=== PATIENT | male | born 1965 | race Caucasian/White ===

== ENCOUNTER 2017-02-19 16:44 | Emergency (ER) | payer OTHER ==
--- NOTE | 2017-02-19 17:43 | ED NURSING NOTES ---
Clinical Report - Nurses [facility] [address] [place] [address] 02/19/2017 16:45 [id number] Triage time 16:52 Feb 19 2017. Acuity: LEVEL 4. Chief Complaint: RIGHT LOWER EXTREMITY PAIN, SWELLING and REDNESS. 16:59 02/19/17. Alert. No acute distress. SEPSIS SCREEN: Sepsis Screen. Negative (no infection suspected/documented). PRATIBHA COMA SCORE: Pratibha Coma Scale: 15- eyes open spontaneously (4); best verbal response- oriented x 4 (5); best motor response- obeys commands (6). --16:59 María Gayle 16:59 02/19/17. BP: 174/103. HR: 71. RR: 14. O2 saturation: 100%. Temp: 97.6 F. Pain level now 1010. --16:59 María Gayle. Weight: 102 kg stated. Height/Length: 72 inches Per Patient. BMI: 30.5. --16:59 María Gayle. Medications Lisinopril Oral 5 mg. --16:56 María Gayle FLUoxetine HCl Oral 20 mg. --16:56 María Gayle Omeprazole Oral 20 mg. --16:56 María Gayle. Medication/allergy information source: the patient. --16:59 María Gayle. Allergies Penicillin. --16:57 María Gayle. History Arrived by private vehicle. Historian: patient. Unaccompanied. Primary physician (Oracio). This occurred (About a week ago). It is described as radiating to the right lower extremity, knee, calf and foot. ( Pt reports gardening that led to swelling in the knee and then down his right leg. Denies fevers/chills. Has never occurred before.). He has had swelling and trouble walking. No fever. 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 PAST MEDICAL HX: Hypertension. No history of deep vein thrombosis or infections. Tetanus status: unknown. Immunizations: up-to-date. SOCIAL HX: Smoker- current status unknown (chews tobacco). No alcohol use or drug use. FALL RISK ASSESSMENT: Fall risk assessment completed. No fall risk identified. NUTRITIONAL RISK ASSESSMENT: The nutritional risk assessment revealed no deficiencies. FUNCTIONAL ASSESSMENT: Functional assessment: no impairments noted. LEARNING NEEDS ASSESSMENT: The learning needs assessment revealed no barriers. SKIN INTEGRITY ASSESSMENT: Skin integrity risk assessment completed. No skin integrity risk identified. --16:59 María Gayle. Assessment The patient states feels the same. --16:59 María Gayle. Interventions ID band on patient. --16:59 María Gayle. PHYSICAL ASSESSMENT 17:00 02/19/17. Ambulatory to room. Patient gowned. GENERAL / NEURO / PSYCH: Oriented X 4. Alert. Appears in no acute distress. CVS: Pulses: right dorsalis pedis 3+ and left dorsalis pedis 3+. EXTREMITIES: Limited ROM present. Increased warmth on the extremities. Extremity pulses are within normal limits. Neuro-vascular status intact to the extremity. Right leg: swelling and erythema. Right ankle: swelling and erythema. Right foot: swelling and erythema. ( limping gait). SKIN: Skin is warm and dry. --17:00 María Gayle. NURSING PROGRESS NOTES 17:02/19/17. The plan of care for this patient has been created. Cold pack applied. Neuro-vascular extremity check. Patient gowned. Reassurance given. Two patient identifiers checked. Call light placed in reach. Side rails up x 1. Bed placed in lowest position. Brakes of bed on. Patient ready for evaluation- chart flagged and ED physician and PA notified. --17:01 María Gayle 17:13 02/19/2017 TDAP IM 0.5 mL given. (Lot#: [id number], expiration date: 01/20/2019, Consultant In Ergonomics And Safety: sanofi pasteur). Given in the right deltoid. Allergies verified and confirmed 5 rights. --17:13 María Gayle 17:52 02/19/2017 Bactrim DS (Sulfamethoxazole-TMP DS) PO Tablets 1 tab given. Allergies verified and confirmed 5 rights. --17:52 María Gayle. DISPOSITION / DISCHARGE 17:53 02/19/17. Departure time: 17:53 Feb 19 2017. Condition at departure: improved. The goals identified in the patient's plan of care were met. No learning barriers present. Discharge instructions provided and reviewed with the patient. Reviewed warnings (Patient verbalized understanding of sedation warning. Patient verbalized awareness of warning s/sx listed in dc paperwork.). Reviewed medication(s) side effects, precautions, dosing and course information. Prescription(s) given to the patient (Bactrim, Vicoden). Treatments reviewed. Reviewed referral to a primary care physician for followup. Patient verbalized understanding. Written instructions provided in Japanese. The patient was discharged by the physician medical assistant instructor. He was discharged home and unaccompanied at time of discharge. He left the Emergency Department ambulatory and via private vehicle. Patient driving. FALL RISK ASSESSMENT: Fall risk assessment completed. No fall risk identified. --17:53 María Gayle 17:52 02/19/17. BP: 157/98. HR: 67. RR: 17. O2 saturation: 99% on room air. Temp: 98.4 F. Pain level now: 05/26. --17:53 María Gayle. Locked/Released at 02/19/2017 19:32 by María Gayle,
--- NOTE | 2017-02-19 17:43 | ED ORDER SUMMARY ---
..... Patient: ANNABEL GARCIA OrderSheet [facility] VisitID: [id number] [address] [place] [address] 51y, M Registration Date/Time: 02/19/2017 ORDER SHEET Weight: 102.0 kg (stated) Allergies: Penicillin GENERAL ORDERS: US Venous Right Urgent (16:57 02/19/2017 EKoroleva P.A.-C) (Ack 16:59 KHoerner) (17:43 Bernadette Khan.NLorenza) CBC w Diff Urgent (16:57 02/19/2017 EKoroleva P.A.-C) (Ack 16:59 KHoerner) (17:07 ASchmuck) BMP Urgent (16:57 02/19/2017 EKoroleva P.A.-C) (Ack 16:59 KHoerner) (17:07 ASchmuck) PCT (Procalcitonin) Urgent (16:57 02/19/2017 EKoroleva P.A.-C) (Ack 16:59 KHoerner) (17:08 ASchmuck) MEDICATION ORDERS: Tdap IM 0.5 mL (NOW, per protocol) (17:04 02/19/2017 EKoroleva P.A.-C) (Ack 17:08 ASchmuck) (17:13 ASchmuck) Bactrim DS PO (Tablet 800-160 mg) 1 tab (NOW) (17:41 02/19/2017 EKoroleva P.A.-C) (Ack 17:43 ASchmuck) (17:52 ASchmuck) IV FLUIDS: ORDER SHEET NOTES: [Electronically signed by Adrianne LaurentALorenza-Maurice (17:54 02/19/2017)] [Electronically signed by María Gayle (19:32 02/19/2017)] [Electronically locked/signed by María Gayle (19:32 02/19/2017)]
--- NOTE | 2017-02-19 17:43 | ED ORDER SUMMARY ---
..... Patient: ANNABEL GARCIA OrderSheet [facility] VisitID: [id number] [address] [place] [address] 51y, M Registration Date/Time: 02/19/2017 ORDER SHEET Weight: 102.0 kg (stated) Allergies: Penicillin GENERAL ORDERS: US Venous Right Urgent (16:57 02/19/2017 EKoroleva P.A.-C) (Ack 16:59 KHoerner) (17:43 Bernadette Khan.NLorenza) CBC w Diff Urgent (16:57 02/19/2017 EKoroleva P.A.-C) (Ack 16:59 KHoerner) (17:07 ASchmuck) BMP Urgent (16:57 02/19/2017 EKoroleva P.A.-C) (Ack 16:59 KHoerner) (17:07 ASchmuck) PCT (Procalcitonin) Urgent (16:57 02/19/2017 EKoroleva P.A.-C) (Ack 16:59 KHoerner) (17:08 ASchmuck) MEDICATION ORDERS: Tdap IM 0.5 mL (NOW, per protocol) (17:04 02/19/2017 EKoroleva P.A.-C) (Ack 17:08 ASchmuck) (17:13 ASchmuck) Bactrim DS PO (Tablet 800-160 mg) 1 tab (NOW) (17:41 02/19/2017 EKoroleva P.A.-C) (Ack 17:43 ASchmuck) (17:52 ASchmuck) IV FLUIDS: ORDER SHEET NOTES: [Electronically signed by Adrianne LaurentALorenza-Maurice (17:54 02/19/2017)] [Electronically signed by María Gayle (19:32 02/19/2017)] [Electronically locked/signed by María Gayle (19:32 02/19/2017)]
--- NOTE | 2017-02-19 17:43 | ED NURSING NOTES ---
Clinical Report - Nurses [facility] [address] [place] [address] 02/19/2017 16:45 [id number] Triage time 16:52 Feb 19 2017. Acuity: LEVEL 4. Chief Complaint: RIGHT LOWER EXTREMITY PAIN, SWELLING and REDNESS. 16:59 02/19/17. Alert. No acute distress. SEPSIS SCREEN: Sepsis Screen. Negative (no infection suspected/documented). PRATIBHA COMA SCORE: Pratibha Coma Scale: 15- eyes open spontaneously (4); best verbal response- oriented x 4 (5); best motor response- obeys commands (6). --16:59 María Gayle 16:59 02/19/17. BP: 174/103. HR: 71. RR: 14. O2 saturation: 100%. Temp: 97.6 F. Pain level now 1010. --16:59 María Gayle. Weight: 102 kg stated. Height/Length: 72 inches Per Patient. BMI: 30.5. --16:59 María Gayle. Medications Lisinopril Oral 5 mg. --16:56 María Gayle FLUoxetine HCl Oral 20 mg. --16:56 María Gayle Omeprazole Oral 20 mg. --16:56 María Gayle. Medication/allergy information source: the patient. --16:59 María Gayle. Allergies Penicillin. --16:57 María Gayle. History Arrived by private vehicle. Historian: patient. Unaccompanied. Primary physician (Oracio). This occurred (About a week ago). It is described as radiating to the right lower extremity, knee, calf and foot. ( Pt reports gardening that led to swelling in the knee and then down his right leg. Denies fevers/chills. Has never occurred before.). He has had swelling and trouble walking. No fever. 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 PAST MEDICAL HX: Hypertension. No history of deep vein thrombosis or infections. Tetanus status: unknown. Immunizations: up-to-date. SOCIAL HX: Smoker- current status unknown (chews tobacco). No alcohol use or drug use. FALL RISK ASSESSMENT: Fall risk assessment completed. No fall risk identified. NUTRITIONAL RISK ASSESSMENT: The nutritional risk assessment revealed no deficiencies. FUNCTIONAL ASSESSMENT: Functional assessment: no impairments noted. LEARNING NEEDS ASSESSMENT: The learning needs assessment revealed no barriers. SKIN INTEGRITY ASSESSMENT: Skin integrity risk assessment completed. No skin integrity risk identified. --16:59 María Gayle. Assessment The patient states feels the same. --16:59 María Gayle. Interventions ID band on patient. --16:59 María Gayle. PHYSICAL ASSESSMENT 17:00 02/19/17. Ambulatory to room. Patient gowned. GENERAL / NEURO / PSYCH: Oriented X 4. Alert. Appears in no acute distress. CVS: Pulses: right dorsalis pedis 3+ and left dorsalis pedis 3+. EXTREMITIES: Limited ROM present. Increased warmth on the extremities. Extremity pulses are within normal limits. Neuro-vascular status intact to the extremity. Right leg: swelling and erythema. Right ankle: swelling and erythema. Right foot: swelling and erythema. ( limping gait). SKIN: Skin is warm and dry. --17:00 María Gayle. NURSING PROGRESS NOTES 17:02/19/17. The plan of care for this patient has been created. Cold pack applied. Neuro-vascular extremity check. Patient gowned. Reassurance given. Two patient identifiers checked. Call light placed in reach. Side rails up x 1. Bed placed in lowest position. Brakes of bed on. Patient ready for evaluation- chart flagged and ED physician and PA notified. --17:01 María Gayle 17:13 02/19/2017 TDAP IM 0.5 mL given. (Lot#: [id number], expiration date: 01/20/2019, Clinical Nurse Occupational Medicine: sanofi pasteur). Given in the right deltoid. Allergies verified and confirmed 5 rights. --17:13 María Gayle 17:52 02/19/2017 Bactrim DS (Sulfamethoxazole-TMP DS) PO Tablets 1 tab given. Allergies verified and confirmed 5 rights. --17:52 María Gayle. DISPOSITION / DISCHARGE 17:53 02/19/17. Departure time: 17:53 Feb 19 2017. Condition at departure: improved. The goals identified in the patient's plan of care were met. No learning barriers present. Discharge instructions provided and reviewed with the patient. Reviewed warnings (Patient verbalized understanding of sedation warning. Patient verbalized awareness of warning s/sx listed in dc paperwork.). Reviewed medication(s) side effects, precautions, dosing and course information. Prescription(s) given to the patient (Bactrim, Vicoden). Treatments reviewed. Reviewed referral to a primary care physician for followup. Patient verbalized understanding. Written instructions provided in Lithuanian. The patient was discharged by the physician project assistant. He was discharged home and unaccompanied at time of discharge. He left the Emergency Department ambulatory and via private vehicle. Patient driving. FALL RISK ASSESSMENT: Fall risk assessment completed. No fall risk identified. --17:53 María Gayle 17:52 02/19/17. BP: 157/98. HR: 67. RR: 17. O2 saturation: 99% on room air. Temp: 98.4 F. Pain level now: 05/26. --17:53 María Gayle. Locked/Released at 02/19/2017 19:32 by María Gayle,
--- NOTE | 2017-02-19 17:43 | ED CLINICAL REPORT ---
Clinical Report - Physicians/Mid Levels [facility] [address] [place] [address] 02/19/2017 16:45 Patient: ANNABEL GARCIA Time Seen: 17:04 Feb 19 2017. Arrived- By private vehicle. Historian- patient. HISTORY OF PRESENT ILLNESS Chief Complaint: Chief Complaint- R. LE pain/ swelling. 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 This was not caused by a direct blow or crush injury. Patient is experiencing moderate pain. Patient denies injury to the head or neck. (The patient presents with right lotion pain swelling over the last 5 days. No history of similar. Denies any injury or trauma. Denies any shortness of breath. Denies history of DVT or PE. his.ith vm g). REVIEW OF SYSTEMS The patient complains of pain on weight bearing. No skin laceration. All systems otherwise negative, except as recorded above. PAST HISTORY The patient has not had a prior injury to the same area. Tetanus immunization status is unknown. Problems: Hypertension. Medications: Omeprazole Oral 20 mg. FLUoxetine HCl Oral 20 mg. Lisinopril Oral 5 mg. Allergies: Penicillin. SOCIAL HISTORY Alcohol use. No drug use. ADDITIONAL NOTES The nursing notes have been reviewed. PHYSICAL EXAM Vital Signs: 02/19/2017 16:59 BP: 174/103. HR: 71. RR: 14. O2 saturation: 100%. Temp: 97.6 F. Appearance: Alert. Head: Head atraumatic. Neck: Normal inspection. Neck supple. CVS: Normal heart rate and rhythm. Heart sounds normal. Respiratory: No respiratory distress. Breath sounds normal. No chest wall injury. Skin: Skin intact. Skin warm. (warmth/ swellnig/ erythema). Extremities: Right hip. No tenderness or laceration. Right thigh. No swelling. Right knee. No tenderness or laceration. No localization of findings. Right leg: swelling located in the anterior and posterior aspect of mid and lower leg. Limited weight bearing secondary to pain. Neurovascular intact distally. No ecchymosis or foreign body. Neuro, Vascular and Tendons: Tendon function intact. Gait: Normal gait. Neuro: Oriented X 3. LABS, X-RAYS, AND EKG Laboratory Tests: CBC w Diff: (TIARA: 02/19/2017 17:05) ( MsgRcvd 02/19/2017 17:22) Final results Test Result Flag Units (Reference) WHITE BLOOD COUNT 9.0 K/uL (4.5-11.5) RED BLOOD COUNT 4.17 L M/uL (4.50-5.90) HEMOGLOBIN 12.2 L gm/dL (13.5-17.5) HEMATOCRIT 36.0 L % (41.0-53.0) MEAN CELL VOLUME 86 fL (80-100) MEAN CORPUSCULAR HGB 29 pg (26-34) MEAN CORPUSCULAR HGB CONC 34 g/dL (31-37) RED CELL DISTRIBUTION WIDTH 12.1 % (11.6-14.8) PLATELET COUNT 334 K/uL (150-400) NEUTROPHIL % 72.5 % (50-75) LYMPH % 15.8 L % (25-40) MONO % 8.9 % (3-14) EOSINOPHIL % 2.0 % (0-4) BASOPHIL % 0.8 % (0-2) BMP: (TIARA: 02/19/2017 17:05) ( MsgRcvd 02/19/2017 17:33) Final results Test Result Flag Units (Reference) GLUCOSE 106 mg/dL (70-110) BUN 7 mg/dL (7-18) CREATININE 0.9 mg/dL (0.6-1.3) Estimated GFR >60 mL/min Estimated GFR- >60 mL/min Note: Persistent reduction over 3 months in eGFR<60 mL/min/1.73 m2 defines CKD. Patients with eGFR values>=60 mL/min/1.73 m2 may also have CKD if evidence ofpersistent proteinuria. Additional information may be foundat www.kidney.org. SODIUM 138 mmol/L (136-145) POTASSIUM 3.5 mmol/L (3.5-5.1) CHLORIDE 101 mmol/L (98-107) CARBON DIOXIDE 25 mmol/L (21-32) CALCIUM 8.1 L mg/dL (8.5-10.1) . Note - Tests: (US: R. LE: VENOUS: neg for DVT, lymph node swelling/ proximal.). PROGRESS AND PROCEDURES Course of Care: Patient with negative ultrasound with no signs of DVT. Patient with good distal pulses and sensation. No injury. No signs of compartment syndrome. Good passive movement. I do not suspect a fracture. No lymphangitic streaking, there is warmth and erythema, was concerning for infection. Labs are unremarkable patient patient with history of hypertension. 02/19/2017 16:59 BP: 174/103. HR: 71. RR: 14. O2 saturation: 100%. Temp: 97.6 F. Patient is stable. Patient/family counseled. Disposition: Discharged. CLINICAL IMPRESSION Hypertension. Cellulitis of the right lower leg. INSTRUCTIONS (elevate LEG). Prescription Medications: Hydrocodone/APAP 5mg / 325mg: take 1 orally every 6 hours as needed for pain. Dispense ten (10). No refill. Bactrim DS 800 mg / 160 mg: take 1 tablet orally every 12 hours for 10 days. No refill. Substitution is permissible. Follow-up: Follow up with doctor Thursday for wound check. (Electronically signed by Adrianne Laurent P.A.-C 02/19/2017 17:54)
--- NOTE | 2017-02-19 18:06 | DIAGNOSTIC IMAGING REPORT ---
PROCEDURE: US VENOUS - RIGHT EXT INDICATION: SWELLING TECHNIQUE: Duplex sonography of the deep venous system in the right lower extremity was performed. Compression and augmentation techniques were used. COMPARISON: None. FINDINGS: Normal compression of the greater saphenous, common femoral, superficial femoral, popliteal, peroneal, and posterior tibial veins. Normal augmentation. There is no evidence of superficial or deep venous thrombosis. Right inguinal lymph node present. IMPRESSION: 1. Negative venous ultrasound of the right lower extremity.
--- NOTE | 2017-02-19 19:33 | ED DISCHARGE INSTRUCTIONS ---
Patient: ANNABEL GARCIA General Instructions [facility] VisitID: [id number] [address] [place] [address] 51y, M Registration Date/Time: 02/19/2017 Hypertension. Cellulitis of the right lower leg. INSTRUCTIONS (elevate LEG). Prescription Medications: Hydrocodone/APAP 5mg / 325mg: take 1 orally every 6 hours as needed for pain. Dispense ten (10). No refill. Bactrim DS 800 mg / 160 mg: take 1 tablet orally every 12 hours for 10 days. No refill. Substitution is permissible. Follow-up: Follow up with doctor Thursday for wound check. ADDITIONAL INFORMATION Cellulitis You have an infection of the skin known as cellulitis. This usually starts with a scrape, cut, insect bite, blister or other opening in the skin which becomes infected. This is a serious condition. It must be watched closely to be sure the infection is not spreading. With antibiotic treatment, the size of the red area will gradually shrink in size until the skin returns to normal. This will take 7-10 days. The red area should never increase in size once the antibiotic medicine has been started. Occasionally, an infection will be resistant to one antibiotic and another one will have to be used. Home Care: 1) Limit the use of the affected part, since excess movement can cause the infection to spread. 2) If the infection is on your leg, walk as little as possible during the first few days of the treatment. Keep your leg elevated while sitting. This will reduce swelling. 3) Take all of the antibiotic medicine exactly as directed until it is gone. Be careful not to miss any doses, especially during the first seven days. Follow Up with your doctor or this facility as directed. Check the infected area daily for the warning signs listed below. Get Prompt Medical Attention if any of the following occur: -- Spreading area of redness -- Increasing swelling or pain -- Appearance of pus or drainage -- Fever over 100.4 F (38.0 C) oral, or over 101.4 F (38.6 C) rectal, after two days on antibiotics Hydrocodone Bitartrate, Acetaminophen Oral tablet What is this medicine? ACETAMINOPHEN; HYDROCODONE (a set a NIKHIL abhijeet fen; radha droe KOE done) is a pain reliever. It is used to treat mild to moderate pain. How should I use this medicine? Take this medicine by mouth. Swallow it with a full glass of water. Follow the directions on the prescription label. If the medicine upsets your stomach, take the medicine with food or milk. Do not take more than you are told to take. Talk to your appliance service supervisor regarding the use of this medicine in children. This medicine is not approved for use in children. What side effects may I notice from receiving this medicine? Side effects that you should report to your doctor or health pharmacist critical care as soon as possible: allergic reactions like skin rash, itching or hives, swelling of the face, lips, or tongue breathing problems confusion feeling faint or lightheaded, falls stomach pain yellowing of the eyes or skin Side effects that usually do not require medical attention (report to your doctor or health pharmacist critical care if they continue or are bothersome): nausea, vomiting stomach upset What may interact with this medicine? alcohol antihistamines isoniazid medicines for depression, anxiety, or psychotic disturbances medicines for sleep muscle relaxants naltrexone narcotic medicines (opiates) for pain phenobarbital ritonavir tramadol What if I miss a dose? If you miss a dose, take it as soon as you can. If it is almost time for your next dose, take only that dose. Do not take double or extra doses. Where should I keep my medicine? Keep out of the reach of children. This medicine can be abused. Keep your medicine in a safe place to protect it from theft. Do not share this medicine with anyone. Selling or giving away this medicine is dangerous and against the law. Store at room temperature between 15 and 30 degrees C (59 and 86 degrees F). Protect from light. Keep container tightly closed. Throw away any unused medicine after the expiration date. Discard unused medicine and used packaging carefully. Pets and children can be harmed if they find used or lost packages. What should I tell my health care provider before I take this medicine? They need to know if you have any of these conditions: brain tumor Crohn's disease, inflammatory bowel disease, or ulcerative colitis drink more than 3 alcohol-containing drinks per day drug abuse or addiction head injury heart or circulation problems kidney disease or problems going to the bathroom liver disease lung disease, asthma, or breathing problems an unusual or allergic reaction to acetaminophen, hydrocodone, other opioid analgesics, other medicines, foods, dyes, or preservatives or trying to get breast-feeding What should I watch for while using this medicine? Tell your doctor or health pharmacist critical care if your pain does not go away, if it gets worse, or if you have new or a different type of pain. You may develop tolerance to the medicine. Tolerance means that you will need a higher dose of the medicine for pain relief. Tolerance is normal and is expected if you take the medicine for a long time. Do not suddenly stop taking your medicine because you may develop a severe reaction. Your body becomes used to the medicine. This does NOT mean you are addicted. Addiction is a behavior related to getting and using a drug for a non-medical reason. If you have pain, you have a medical reason to take pain medicine. Your doctor will tell you how much medicine to take. If your doctor wants you to stop the medicine, the dose will be slowly lowered over time to avoid any side effects. You may get drowsy or dizzy when you first start taking the medicine or change doses. Do not drive, use machinery, or do anything that may be dangerous until you know how the medicine affects you. Stand or sit up slowly. There are different types of narcotic medicines (opiates) for pain. If you take more than one type at the same time, you may have more side effects. Give your health care provider a list of all medicines you use. Your doctor will tell you how much medicine to take. Do not take more medicine than directed. Call emergency for help if you have problems breathing. The medicine will cause constipation. Try to have a bowel movement at least every 2 to 3 days. If you do not have a bowel movement for 3 days, call your doctor or health pharmacist critical care. Too much acetaminophen can be very dangerous. Do not take Tylenol (acetaminophen) or medicines that contain acetaminophen with this medicine. Many non-prescription medicines contain acetaminophen. Always read the labels carefully. Sulfamethoxazole, Trimethoprim Oral tablet What is this medicine? SULFAMETHOXAZOLE; TRIMETHOPRIM or SMX-TMP (suhl fuh meth OK leidy zohl; trye METH oh prim) is a combination of a sulfonamide antibiotic and a second antibiotic, trimethoprim. It is used to treat or prevent certain kinds of bacterial infections. It will not work for colds, flu, or other viral infections. How should I use this medicine? Take this medicine by mouth with a full glass of water. Follow the directions on the prescription label. Take your medicine at regular intervals. Do not take it more often than directed. Do not skip doses or stop your medicine early. Talk to your appliance service supervisor regarding the use of this medicine in children. Special care may be needed. This medicine has been used in children as young as 2 months of age. What side effects may I notice from receiving this medicine? Side effects that you should report to your doctor or health pharmacist critical care as soon as possible: allergic reactions like skin rash or hives, swelling of the face, lips, or tongue breathing problems fever or chills, sore throat irregular heartbeat, chest pain joint or muscle pain pain or difficulty passing urine red pinpoint spots on skin redness, blistering, peeling or loosening of the skin, including inside the mouth unusual bleeding or bruising unusually weak or tired yellowing of the eyes or skin Side effects that usually do not require medical attention (report to your doctor or health pharmacist critical care if they continue or are bothersome): diarrhea dizziness headache loss of appetite nausea, vomiting nervousness What may interact with this medicine? Do not take this medicine with any of the following medications: aminobenzoate potassium dofetilide metronidazole This medicine may also interact with the following medications: TERENCE inhibitors like benazepril, enalapril, lisinopril, and ramipril cyclosporine digoxin diuretics indomethacin medicines for diabetes methenamine methotrexate phenytoin potassium supplements pyrimethamine sulfinpyrazone tricyclic antidepressants warfarin What if I miss a dose? If you miss a dose, take it as soon as you can. If it is almost time for your next dose, take only that dose. Do not take double or extra doses. Where should I keep my medicine? Keep out of the reach of children. Store at room temperature between 20 to 25 degrees C (68 to 77 degrees F). Protect from light. Throw away any unused medicine after the expiration date. What should I tell my health care provider before I take this medicine? They need to know if you have any of these conditions: anemia asthma being treated with anticonvulsants if you frequently drink alcohol containing drinks kidney disease liver disease low level of folic acid or [id number] dehydrogenase poor nutrition or malabsorption porphyria severe allergies thyroid disorder an unusual or allergic reaction to sulfamethoxazole, trimethoprim, sulfa drugs, other medicines, foods, dyes, or preservatives or trying to get breast-feeding What should I watch for while using this medicine? Tell your doctor or health pharmacist critical care if your symptoms do not improve. Drink several glasses of water a day to reduce the risk of kidney problems. Do not treat diarrhea with over the counter products. Contact your doctor if you have diarrhea that lasts more than 2 days or if it is severe and watery. This medicine can make you more sensitive to the sun. Keep out of the sun. If you cannot avoid being in the sun, wear protective clothing and use a sunscreen. Do not use sun lamps or tanning beds/booths. You have been given the following additional information: Cellulitis Hydrocodone Bitartrate, Acetaminophen Oral tablet Sulfamethoxazole, Trimethoprim Oral tablet (Electronically signed by Adrianne Laurent P.A.-C 02/19/2017 17:54)
--- NOTE | 2017-02-19 19:33 | ED DISCHARGE INSTRUCTIONS ---
Patient: ANNABEL GARCIA General Instructions [facility] VisitID: [id number] [address] [place] [address] 51y, M Registration Date/Time: 02/19/2017 Hypertension. Cellulitis of the right lower leg. INSTRUCTIONS (elevate LEG). Prescription Medications: Hydrocodone/APAP 5mg / 325mg: take 1 orally every 6 hours as needed for pain. Dispense ten (10). No refill. Bactrim DS 800 mg / 160 mg: take 1 tablet orally every 12 hours for 10 days. No refill. Substitution is permissible. Follow-up: Follow up with doctor Thursday for wound check. ADDITIONAL INFORMATION Cellulitis You have an infection of the skin known as cellulitis. This usually starts with a scrape, cut, insect bite, blister or other opening in the skin which becomes infected. This is a serious condition. It must be watched closely to be sure the infection is not spreading. With antibiotic treatment, the size of the red area will gradually shrink in size until the skin returns to normal. This will take 7-10 days. The red area should never increase in size once the antibiotic medicine has been started. Occasionally, an infection will be resistant to one antibiotic and another one will have to be used. Home Care: 1) Limit the use of the affected part, since excess movement can cause the infection to spread. 2) If the infection is on your leg, walk as little as possible during the first few days of the treatment. Keep your leg elevated while sitting. This will reduce swelling. 3) Take all of the antibiotic medicine exactly as directed until it is gone. Be careful not to miss any doses, especially during the first seven days. Follow Up with your doctor or this facility as directed. Check the infected area daily for the warning signs listed below. Get Prompt Medical Attention if any of the following occur: -- Spreading area of redness -- Increasing swelling or pain -- Appearance of pus or drainage -- Fever over 100.4 F (38.0 C) oral, or over 101.4 F (38.6 C) rectal, after two days on antibiotics Hydrocodone Bitartrate, Acetaminophen Oral tablet What is this medicine? ACETAMINOPHEN; HYDROCODONE (a set a NIKHIL abhijeet fen; radha droe KOE done) is a pain reliever. It is used to treat mild to moderate pain. How should I use this medicine? Take this medicine by mouth. Swallow it with a full glass of water. Follow the directions on the prescription label. If the medicine upsets your stomach, take the medicine with food or milk. Do not take more than you are told to take. Talk to your sales vendor regarding the use of this medicine in children. This medicine is not approved for use in children. What side effects may I notice from receiving this medicine? Side effects that you should report to your doctor or health respiratory care instructor as soon as possible: allergic reactions like skin rash, itching or hives, swelling of the face, lips, or tongue breathing problems confusion feeling faint or lightheaded, falls stomach pain yellowing of the eyes or skin Side effects that usually do not require medical attention (report to your doctor or health respiratory care instructor if they continue or are bothersome): nausea, vomiting stomach upset What may interact with this medicine? alcohol antihistamines isoniazid medicines for depression, anxiety, or psychotic disturbances medicines for sleep muscle relaxants naltrexone narcotic medicines (opiates) for pain phenobarbital ritonavir tramadol What if I miss a dose? If you miss a dose, take it as soon as you can. If it is almost time for your next dose, take only that dose. Do not take double or extra doses. Where should I keep my medicine? Keep out of the reach of children. This medicine can be abused. Keep your medicine in a safe place to protect it from theft. Do not share this medicine with anyone. Selling or giving away this medicine is dangerous and against the law. Store at room temperature between 15 and 30 degrees C (59 and 86 degrees F). Protect from light. Keep container tightly closed. Throw away any unused medicine after the expiration date. Discard unused medicine and used packaging carefully. Pets and children can be harmed if they find used or lost packages. What should I tell my health care provider before I take this medicine? They need to know if you have any of these conditions: brain tumor Crohn's disease, inflammatory bowel disease, or ulcerative colitis drink more than 3 alcohol-containing drinks per day drug abuse or addiction head injury heart or circulation problems kidney disease or problems going to the bathroom liver disease lung disease, asthma, or breathing problems an unusual or allergic reaction to acetaminophen, hydrocodone, other opioid analgesics, other medicines, foods, dyes, or preservatives or trying to get breast-feeding What should I watch for while using this medicine? Tell your doctor or health respiratory care instructor if your pain does not go away, if it gets worse, or if you have new or a different type of pain. You may develop tolerance to the medicine. Tolerance means that you will need a higher dose of the medicine for pain relief. Tolerance is normal and is expected if you take the medicine for a long time. Do not suddenly stop taking your medicine because you may develop a severe reaction. Your body becomes used to the medicine. This does NOT mean you are addicted. Addiction is a behavior related to getting and using a drug for a non-medical reason. If you have pain, you have a medical reason to take pain medicine. Your doctor will tell you how much medicine to take. If your doctor wants you to stop the medicine, the dose will be slowly lowered over time to avoid any side effects. You may get drowsy or dizzy when you first start taking the medicine or change doses. Do not drive, use machinery, or do anything that may be dangerous until you know how the medicine affects you. Stand or sit up slowly. There are different types of narcotic medicines (opiates) for pain. If you take more than one type at the same time, you may have more side effects. Give your health care provider a list of all medicines you use. Your doctor will tell you how much medicine to take. Do not take more medicine than directed. Call emergency for help if you have problems breathing. The medicine will cause constipation. Try to have a bowel movement at least every 2 to 3 days. If you do not have a bowel movement for 3 days, call your doctor or health respiratory care instructor. Too much acetaminophen can be very dangerous. Do not take Tylenol (acetaminophen) or medicines that contain acetaminophen with this medicine. Many non-prescription medicines contain acetaminophen. Always read the labels carefully. Sulfamethoxazole, Trimethoprim Oral tablet What is this medicine? SULFAMETHOXAZOLE; TRIMETHOPRIM or SMX-TMP (suhl fuh meth OK leidy zohl; trye METH oh prim) is a combination of a sulfonamide antibiotic and a second antibiotic, trimethoprim. It is used to treat or prevent certain kinds of bacterial infections. It will not work for colds, flu, or other viral infections. How should I use this medicine? Take this medicine by mouth with a full glass of water. Follow the directions on the prescription label. Take your medicine at regular intervals. Do not take it more often than directed. Do not skip doses or stop your medicine early. Talk to your sales vendor regarding the use of this medicine in children. Special care may be needed. This medicine has been used in children as young as 2 months of age. What side effects may I notice from receiving this medicine? Side effects that you should report to your doctor or health respiratory care instructor as soon as possible: allergic reactions like skin rash or hives, swelling of the face, lips, or tongue breathing problems fever or chills, sore throat irregular heartbeat, chest pain joint or muscle pain pain or difficulty passing urine red pinpoint spots on skin redness, blistering, peeling or loosening of the skin, including inside the mouth unusual bleeding or bruising unusually weak or tired yellowing of the eyes or skin Side effects that usually do not require medical attention (report to your doctor or health respiratory care instructor if they continue or are bothersome): diarrhea dizziness headache loss of appetite nausea, vomiting nervousness What may interact with this medicine? Do not take this medicine with any of the following medications: aminobenzoate potassium dofetilide metronidazole This medicine may also interact with the following medications: TERENCE inhibitors like benazepril, enalapril, lisinopril, and ramipril cyclosporine digoxin diuretics indomethacin medicines for diabetes methenamine methotrexate phenytoin potassium supplements pyrimethamine sulfinpyrazone tricyclic antidepressants warfarin What if I miss a dose? If you miss a dose, take it as soon as you can. If it is almost time for your next dose, take only that dose. Do not take double or extra doses. Where should I keep my medicine? Keep out of the reach of children. Store at room temperature between 20 to 25 degrees C (68 to 77 degrees F). Protect from light. Throw away any unused medicine after the expiration date. What should I tell my health care provider before I take this medicine? They need to know if you have any of these conditions: anemia asthma being treated with anticonvulsants if you frequently drink alcohol containing drinks kidney disease liver disease low level of folic acid or [id number] dehydrogenase poor nutrition or malabsorption porphyria severe allergies thyroid disorder an unusual or allergic reaction to sulfamethoxazole, trimethoprim, sulfa drugs, other medicines, foods, dyes, or preservatives or trying to get breast-feeding What should I watch for while using this medicine? Tell your doctor or health respiratory care instructor if your symptoms do not improve. Drink several glasses of water a day to reduce the risk of kidney problems. Do not treat diarrhea with over the counter products. Contact your doctor if you have diarrhea that lasts more than 2 days or if it is severe and watery. This medicine can make you more sensitive to the sun. Keep out of the sun. If you cannot avoid being in the sun, wear protective clothing and use a sunscreen. Do not use sun lamps or tanning beds/booths. You have been given the following additional information: Cellulitis Hydrocodone Bitartrate, Acetaminophen Oral tablet Sulfamethoxazole, Trimethoprim Oral tablet (Electronically signed by Adrianne Laurent P.A.-C 02/19/2017 17:54)
--- NOTE | 2017-02-19 19:33 | ED MAR SUMMARY ---
..... Medication Administration Record [facility] [address] [place] [address] Patient: ANNABEL GARCIA Visit ID: [id number] 51y, M Weight: 102.0 kg Height/Length: 72 in BMI: 30.5 ALLERGIES: Penicillin Given 17:13 02/19/2017 María Gayle, Medication Administered: TDAP [IM], Dose: 0.5 mL IM. Medication Ordered: Tdap IM 0.5 mL (NOW, per protocol). Given 17:52 02/19/2017 María Gayle, Medication Administered: BACTRIM DS [PO] (SULFAMETHOXAZOLE-TMP DS), Dose: 1 tab Tablets PO. Medication Ordered: Bactrim DS PO (Tablet 800-160 mg) 1 tab (NOW).
--- NOTE | 2017-02-19 19:33 | ED MAR SUMMARY ---
..... Medication Administration Record [facility] [address] [place] [address] Patient: ANNABEL GARCIA Visit ID: [id number] 51y, M Weight: 102.0 kg Height/Length: 72 in BMI: 30.5 ALLERGIES: Penicillin Given 17:13 02/19/2017 María Gayle, Medication Administered: TDAP [IM], Dose: 0.5 mL IM. Medication Ordered: Tdap IM 0.5 mL (NOW, per protocol). Given 17:52 02/19/2017 María Gayle, Medication Administered: BACTRIM DS [PO] (SULFAMETHOXAZOLE-TMP DS), Dose: 1 tab Tablets PO. Medication Ordered: Bactrim DS PO (Tablet 800-160 mg) 1 tab (NOW).
--- NOTE | 2017-02-19 19:33 | ED MED RECONCILIATION SUMMARY ---
Patient: ANNABEL GARCIA Medication Reconciliation Report [facility] VisitID: [id number] [address] [place] [address] 51y, M Registration Date/Time: 02/19/2017 Weight: 102.0 kg Height/Length: 72 in. BMI: 30.5 ALLERGIES: Penicillin The patient's Home Medications are listed below: THE FOLLOWING MEDICATIONS NEED TO BE RECONCILED: FLUoxetine HCl Oral 20 mg Lisinopril Oral 5 mg Omeprazole Oral 20 mg The source(s) of the original Home Medication information: patient The following Medications were given to the patient in the Emergency Department: TDAP [IM] IM 0.5 mL, administered: 02/19/2017 5:13:00 PM Bactrim DS [PO] PO 1 tab, administered: 02/19/2017 5:52:00 PM The following Medications were prescribed to the patient: Hydrocodone/APAP 5mg / 325mg: take 1 orally every 6 hours as needed for pain. Dispense ten (10). No refill. -- Adrianne Laurent P.AAndie Bactrim DS 800 mg / 160 mg: take 1 tablet orally every 12 hours for 10 days. No refill. Substitution is permissible. -- Adrianne Laurent P.A.-C
--- NOTE | 2017-02-19 19:33 | ED MED RECONCILIATION SUMMARY ---
Patient: ANNABEL GARCIA Medication Reconciliation Report [facility] VisitID: [id number] [place] [address] 51y, M Registration Date/Time: 02/19/2017 Weight: 102.0 kg Height/Length: 72 in. BMI: 30.5 ALLERGIES: Penicillin The patient's Home Medications are listed below: THE FOLLOWING MEDICATIONS NEED TO BE RECONCILED: FLUoxetine HCl Oral 20 mg Lisinopril Oral 5 mg Omeprazole Oral 20 mg The source(s) of the original Home Medication information: patient The following Medications were given to the patient in the Emergency Department: TDAP [IM] IM 0.5 mL, administered: 02/19/2017 5:13:00 PM Bactrim DS [PO] PO 1 tab, administered: 02/19/2017 5:52:00 PM The following Medications were prescribed to the patient: Hydrocodone/APAP 5mg / 325mg: take 1 orally every 6 hours as needed for pain. Dispense ten (10). No refill. -- Adrianne Laurent P.AAndie Bactrim DS 800 mg / 160 mg: take 1 tablet orally every 12 hours for 10 days. No refill. Substitution is permissible. -- Adrianne Laurent P.A.-C
== END 2017-02-19 17:53 | disposition home or self-care (01) ==
LOC: ED SRH 16:44
DX: L03.115 Cellulitis of right lower limb (principal); I10 Essential (primary) hypertension; Z79.899 Other long term (current) drug therapy; Z88.0 Allergy status to penicillin; Z23 Encounter for immunization